=== PATIENT | female | born 1955 | race Caucasian/White ===

== ENCOUNTER 2020-03-06 07:45 | Day surgery (SDC) | payer OTHER ==
--- NOTE | 2020-02-24 14:00 | NUR ---
TALK WITH PATIENT TODAY AND SHE WILL HAVE A RAMP TO GET INTO HER HOME WITH. PATIENTS WILL BRING HER AND TAKE HER TO ALL OF HER APPOINTMENTS (DOCTORS AND PHYSICAL THERAPY). SHE WILL NEED TO OBTAIN A FFW. PATIENT IS GOING TO TALK WITH PHYSICAL THERAPY TODAY ABOUT THIS. PT HAS A WALK IN SHOWER AT HER SISTERS HOME THAT SHE WILL USE THAT ALSO HAS A SHOWER CHAIR. AND PATIENTS HOME [place]ARLA IS TALL THEREFORE NO RISER IS NEEDED. PT IS VERY HAPPY TO HAVE THIS DONE AND DETERMINED.
[~2020-03-06] VITALS: Ht 162.6 cm; Wt 72.7 kg
[~2020-03-06 07:45] MED LIST: BUPROPION XL300 MG PO; CRESTOR10 MG PO; CYCLOBENZAPRINE10 MG PO; KONDREMUL2.5 ML/5 M PO; LAMICTAL200 MG PO; LANSOPRAZOLE30 MG PO; LEXAPRO20 MG PO; MOTRIN IB200 MG; OMEPRAZOLE20 MG PO; POTASSIUM CHLO20 ME2 PO; PRENATAL VITAM1 EACH PO; SENNA LAXATIVE8.6 MG PO; TYLENOL325 MG; ULTRAM50 MG PO; VENTOLIN HFA18 GM; VERAPAMIL ER240 M1 PO; WELLBUTRIN XL150 MG PO; XANAX0.5 MG PO
--- NOTE | 2020-03-06 08:52 | NUR ---
SARAH HOSE ON RIGHT LEG, FOOTPUMPS IN PLACE. NOSE SWABBED WITH NOSIN, BLUE CAP AND MASK IN PLACE.
--- NOTE | 2020-03-06 09:18 | NUR ---
THIS RN ASSIST SHARMILA PIKE WITH POPLITEAL NERVE BLOCK IN DS RM 3. OR STUDENT AT BEDSIDE OBSERVING. CONT PULSE OXIMETER IN PLACE FOR PROCEDURE AND AFTER WITH BOTH SIDERAILS UP FOR SAFETY.
--- NOTE | 2020-03-06 12:12 | NUR ---
03/06/20 1212 Nya Pascual 1115 PT ARRIVED IN PACU NON RESPONSIVE TO NOXIOUS STIMULI. CHIN LIFT HELD BY RN. 1120 PT REACTIVE TO VERBAL/TACTILE STIMULI WITH CONSTANT STIMULATION NEEDED. 1145 PT REACTIVE TO VERBAL STIMULI. SITS UP IN BED, THEN FALLS BACK TO SLEEP. NEEDING VERBAL STIMULATION TO TAKE DEEP BREATHS. 1200 PT OCCASIONALLY STARTLES SELF FROM SNORING, THEN FALLS BACK TO SLEEP.
--- NOTE | 2020-03-06 13:03 | NUR ---
PT ARRIVES TO DS RM 3 FROM PACU DROWSY. PT STATES, "I JUST WANT TO TAKE A NAP" BUT AROUSES TO VERBAL STIMULI. PT DENIES PAIN IN LEFT KNEE AND TOLERATES SMALL SIPS OF WATER WITH NO NAUSEA. PT HAS SHRUTHI IN PLACE, FLASHING GREEN LIGHT. ON-Q PUMP SET TO 4. GOOD CMS, DENIES ANY NUMBESS OR TINGLING IN LEFT LEG. PT PROVIDED CRACKERS AND TOLERATES WELL. CONT PULSE OXIMETER LEFT IN PLACE. CALL LIGHT WITHIN REACH.
--- NOTE | 2020-03-06 14:07 | NUR ---
PT AROUSES WITH VERBAL STIMULATION AND NC REMOVED. PT AWAKES AND IS ABLE TO MAINTAIN SATS ABOVE 94% ON RA. ATTENDS PLACED ON PT DUE TO SPINAL AND PT STATING "PEEING PANTS BEFORE WITH SPINAL." FOOTPUMPS IN PLACE AND PUMPING. SHRUTHI CONT TO FLASH GREEN. PT PROVIDED PUDDING AND DEMONSTRATES I.S. USE FOR THIS RN. PT SPOUSE AT BEDSIDE, CALL LIGHT WITHIN REACH.
[2020-03-06] MEDS ORDERED: ASPIRIN EC325 MG PO (14:46)
[2020-03-06] MEDS ORDERED: XARELTO10 MG PO (14:46)
[2020-03-06] MEDS ORDERED: STOOL SOFTENER1 EAC4 PO (14:47)
[2020-03-06] MEDS ORDERED: HYDROMORPHONE HC4 MG PO (14:47)
[2020-03-06] MEDS ORDERED: GABAPENTIN600 MG PO (14:47)
--- NOTE | 2020-03-06 14:59 | NUR ---
PT SLEEPING ON ARRIVAL TO ROOM, AROUSES WITH VERBAL STIMULATION BUT EASILY DOZES BACK OFF WITH NO STIMULATION. PT DENIES NAUSEA AND RATES PAIN FOR RN. CONT PULSE OXIMETER IN PLACE WHILE SLEEPING, SUPPLEMENTAL 02 PLACED AT 2L/MIN. PT SPOUSE OUT OF ROOM AT THIS TIME, CALL LIGHT WITHIN REACH.
--- NOTE | 2020-03-06 15:17 | NUR ---
ALBERT WITH PHYSICAL THERAPY WORKING WITH PT IN DS RN 3.
--- NOTE | 2020-03-06 15:51 | NUR ---
1538: PT STATES THAT EARLENE AT DR. ETIENNE TOLD HER THAT SHE "WOULD TAKE CARE OF IT" REGARDING FWW. THIS RN LEFT MESSAGE WITH ABE TO RELAY TO EARLENE, STATES "EARLENE WILL CALL BACK IN 5 MINUTES." 1550: PT SPOUSE HEADS TO [facility] TO GET FWW BEFORE THEY CLOSE AT 1600. ALBERT STATES PT IS NOT ALLOWED TO DC HOME WITHOUT FWW.
--- NOTE | 2020-03-06 17:50 | NUR ---
PT ARRIVED TO FLOOR VIA STRETCHER. TRANSFERED SELF TO BED. PT IS ALERT AND ORIENTED. DRESSING TO LEFT KNEE WITH SMALL AMOUNT OF SHADOWING. ON-Q SET TO 4. PICCO DRESSING BLINKING GREEN. TEDHOSE, FEET PUMPS AND CRYOCUFF IN PLACE. SOME AREAS OF NUMBNESS BUT FEELING MOSTLY INTACT TO LLE. DINNER ORDERED. VITALS TAKEN AND STABLE. DENEIS PAIN.
--- NOTE | 2020-03-06 18:18 | NUR ---
[id number]: ALBERT WITH PHYSICAL THERAPY APPROVES PT TO GO HOME, DOES WELL WITH EXERCISES. PT DENIES URGE TO VOID, ENCOURAGED TO TRY. PT AMBULATES TO BATHROOM WITH FWW AND RN ASSIST. PT UNABLE TO INITIATE URINE STREAM AND IS ONLY ABLE TO DRIBBLE SMALL AMOUNT. PT INCONTINENT OF URINE, SOILS ATTENDS X3. PT BLADDER SCANNED OF APPROX 756 MLS. STRAIGHT CATH STERILY INSERTED WITH APPROX 750 MLS ORANGE URINE OUTPUT. PT STATES FEELING MUCH BETTER AFTER CATHETER AND NEW VOIDING TRIAL BEGINS. PT IS TRANSFERRED TO MED SURG RM 108 TO MEET CRITERIA. SPOUSE NOTIFIED OF PT TRANSFER. DR. ETIENNE NOTIFIED OF PT STATUS. VERBAL REPORT GIVEN TO ROBERTO CARLOS SHANNON.
--- NOTE | 2020-03-06 19:05 | NUR ---
REPORT RECEIVED FROM ROBERTO CARLOS SHANNON. PATIENT ALERT AND ORIENTED, STATES NO PAIN. SHRUTHI LIGHT FLASHING GREEN, CRYO IN PLACE, DRESSING C/D/I. CMS INTACT. AT BEDSIDE, CALL LIGHT IN REACH. WILL CONT TO MONITOR.
--- NOTE | 2020-03-06 20:30 | NUR ---
SCHEDULED MEDICATIONS ADMINSTERED. ASSESSMENT COMPLETE. DRESSING INSPECTED BY ROBERTO CARLOS MILLER.
--- NOTE | 2020-03-06 21:25 | NUR ---
IN pt ROOM TO ASSESS DRAINGE ON SHRUTHI. SMALL AMT SS DRAINAGE FROM ON Q SITE. PRIMARY RN TO UPDATE MD. SBA WITH CANE TO RESTROOM. GAIT STABLE. pt VERBALIZES UNDERSTANDING TO USE CALL LIGHT WHEN FINISHED.
--- NOTE | 2020-03-06 21:28 | NUR ---
UPDATE CALL IN TO DR. ETIENNE. PT HAD BEEN UP TO VOID X2. THE FIRST TIME PT WAS TO THE TOILET, PT DID NOT USE CALL LIGHT AND ASSISTED PT TO THE TOILET. PT'S TOOK ENTIRE CRYO UNIT AND SCD UNIT WELL ONQUE/SHRUTHI JIMENEZ BAG TO BATHROOM WITH THE PT. WHEN PT RETURNED TO BED, SEROSANGUINOUS FLUID NOTED TO BE AROUND ONQUE TUBING AND SHRUTHI UNIT WAS FLASHING ORANGE. PT REPORTED THAT SHE DOES NOT FEEL SHE IS READY TO GO HOME YET. DR. ETIENNE APPROVED PT TO STAY OVERNIGHT. DR ETIENNE GAVE VERBAL ORDER TO REINFORCE WOUND DRESSING. WILL CONTINUE TO MONITOR.
--- NOTE | 2020-03-06 21:40 | NUR ---
ANSWERED CALL LIGHT. 1 PA TO THE BATHROOM USING CANE. PATIENT WANTED TO HABE BATHROOM LIGHTS OFF WHILE ON THE TOILET. CHECKED PATIENT MULTIPLE TIMES. PATIENT SEEN USING HER CANE TRYING TO TURN THE FAUCET ON IN THE SINK. PATIENT INSTRUCTED TO TELL THIS ASPHALT MIXING MACHINE OPERATOR TO DO WHATEVER SHE NEEDS. PATIENT UNDERSTOOD AND AGREED. PATIENT WAS BACK TO BED. SCD AND CRYO ARE BACK ON. CALL LIGHT WITHIN REACH. BED ALARM ON FOR SAFETY.
--- NOTE | 2020-03-06 22:05 | NUR ---
PATIENT CALLED TO USE THE BATHROOM. PATIENT IS ALREADY UP IN BED WHEN THIS SOCCER COACH CAME TO THE ROOM. PATIENT STATED SHE WILL BE IN THE TOILET FOR A WHILE. INSTRUCTED TO NOT TO GET UP BY HERSELF. INSTRUCTED TO PULL THE STRING/BATHROOM LIGHT WHEN DONE AND READY TO GO BACK TO BED. PRIMARY RN ANGELA NOTIFIED.
--- NOTE | 2020-03-06 23:00 | NUR ---
ANSWERED CALL LIGHT. PATIENT STATES NEEDING TO VOID AGAIN, REPORTS "SPASM/TINGLING" IN URETHRA, AND "PRESSURE". BLADDER SCANNED TWICE, BOTH READINGS REPORT >[id number]. PT UP TO [facility] TO VOID WITH NO SUCCESS. PER ORDER, NELSON CATHETER INSERTED USING STERILE TECHNIQUE. IMMEDIATELY POST NELSON PLACEMENT, 800 MLS URINE OBTAINED IN NELSON BAG. PT REPORTS "MUCH RELIEF". DRESSING ENFORCED TO ON QUE TUBING WITH OPSITE, SHRUTHI NOW FLASHING GREEN. CRYO REPLACED. PT REPORTS NO PAIN. IN BED WITH KNEE STRAIGHT, BED LOCKED, BED ALARM ON. CALL LIGHT IN REACH.
--- NOTE | 2020-03-07 01:26 | NUR ---
IN ROOM TO HANG IV ANTIBIOTIC. PT SLEEPING SUPINE WITH KNEE STRAIGHT. SHRUTHI FLASHING GREEN, SCDS ON, CRYO UNIT IN PLACE. PT SLEPT THROUGH IV INFUSION. CALL LIGHT WITHIN REACH.
--- NOTE | 2020-03-07 02:56 | NUR ---
SCHEDULED MEDICATIONS ADMINISTERED. VITALS AND I/O'S COMPLETE. ASSESSMENT COMPLETE. DRESSING TO L KNEE REMAINS UNCHANGED, C/D/I, SHRUTHI FLASHING GREEN, CRYO IN PLACE. CMS INTACT. PT REPORTS NO PAIN. CALL LIGHT IN REACH, WILL CONTINUE TO MONITOR.
--- NOTE | 2020-03-07 04:41 | NUR ---
ROUNDED ON PATIENT. IN BED WITH EYES CLOSED. BREATHING EVEN AND UNLABORED. CALL LIGHT IN REACH.
--- NOTE | 2020-03-07 06:18 | NUR ---
VITALS COMPLETE. NELSON REMOVED WNL. DRESSING TO L KNEE UNCHANGED, C/D/I, SHRUTHI FLASHING GREEN, CRYOCUFF IN PLACE. PT REPORTS "ABLE TO FEEL THE KNEE MORE THIS MORNING" BUT STATES NO OVERT PAIN. CALL LIGHT IN REACH, NO OTHER NEEDS.
--- NOTE | 2020-03-07 07:14 | NUR ---
In room for shift report from Rekha AZEVEDO. Pt lying in bed, alert and pleasant upon greeting. Pt reports no pain or nausea at this time. In bed, table and call light within reach, side rails up x4, bed alarm on. Report in cluded: Pt had an episode of confusion last night where she got up and walked into bathroom without calling or properly moving her tubes and lines with her. Bed alarm turned on after this. Since this episode the pt has had an uneventful evening.
--- NOTE | 2020-03-07 08:00 | NUR ---
THIS RN TO ROOM TO ASSIST PT UP TO CHAIR FOR BREAKFAST. STAND BY ASSIST WITH CANE UP TO CHAIR. PT IS GETTING UP PT REPORTS "I TOOK ALL MY HOME MEDICATIONS FROM MY BAG." MEDICATION BOTTLES REMOVED FROM PTS BAG. PT REPORTS SHE TOOK "ONE OF EACH LIKE I NORMALLY DO" INCLUDING MEDICAITONS NORMALLY TAKEN AT NIGHT (PT STATES "I CHANGED IT" WHEN ASKED ABOUT WHY SHE TAKES HER NIGHT TIME MEDICATIONS IN THE MORNING). PT TOOK THE FOLLOWING MEDICATIONS: 1 BUPROPION, 30MG TABLET; 1 LAMOTRIGINE 200MG TABLET; 1 LANSOPRAZOLE 30MG TABLET; 1 ROSUVASTATIN 10MG TABLET; 1 ESCITALOPRAM 20MG TABELT, AND [address] ETIENNE UPDATED. DR ETIENNE STATES NO NEW ORDERS BUT TO HOLD THE MORNING PANTOPRAZOLE. DR. ETIENNE STATES OK TO GIVE PT ALL THE REST OF HER MORNING MEDICATIONS ORDERED IN EMAR. EDUCATION DONE WITH PT. PT VERBALIZES UNDERSTANDING. PTS HOME MEDICATIONS BOTTLES AT NURSES STATION PENDING DISCHRAGE. PTS VIVIAN AZEVEDO, UPDATED AND VERBALIZES UNDERSTANDING OF MD ORDER. PT UP TO CHAIR, NO ADDITIONAL REQUSTS OR COMPLAINTS. CALL LIGHT WITHIN REACH. MORNING CARES DONE. PTS VIVIAN AZEVEDO, AT BEDSIDE.
--- NOTE | 2020-03-07 08:00 | NUR ---
In room for assessment and med pass. Pt up to chair withgiuliano Sheffield RN at bedside. Rn reported that Pt would not be able to take one of her meds due to having already taken her home meds without hospital consent this morning. Pt med held, all other meds given as ordered without difficulty. Pt assessment complete, VSS, Left knee dressing with small amount of red drainage from last night, SHRUTHI dressing in place, green light flashing, and pump set to 4. Pt reclining in chair, having breakfast, fresh water given, linens changed, table and call light within reach, at bedside.
--- NOTE | 2020-03-07 08:06 | OR ---
[facility] [address] [place], [place] [address] Signed DATE OF OPERATION: 03/06/2020 SURGEON: Juan Murry MD PREOPERATIVE DIAGNOSIS: Degenerative joint disease, left knee. POSTOPERATIVE DIAGNOSIS: Degenerative joint disease, left knee. PROCEDURE PERFORMED: Left total knee arthroplasty with Simón. ASSISTANTS: 1. Vero Clark PA-C. Vero was present and critical for all portions of procedure. 2. STEVE Seals. ANESTHESIA: Spinal. BLOOD LOSS: 225 mL. IMPLANTS: [place] Triathlon size #3 with a 10 mm insert and 35 mm patella. BRIEF HISTORY: Sravanthi is a 64-year-old female with progressive worsening of osteoarthritis pain. She had nonoperative treatment without success. Risks, benefits, and alternatives of operative intervention were discussed with her and she elected to proceed. DESCRIPTION OF PROCEDURE: Once consent was obtained, she was taken to the operating room after adequate anesthesia. She was placed on operating room table. All downside pressure points were well padded. The left leg was prepped and draped in a standard sterile fashion. It was noted that she was fairly hypertensive prior to surgery, but this corrected during the surgery. Once the leg was prepped and draped in a standard sterile fashion, the knee was approached through a standard anterior longitudinal incision, carried through skin and subcutaneous tissue. A subvastus approach was taken through the capsule. The MCL Electronically Signed By: JUAN MURRY MD 03/07/20 0806 PATIENT NAME: SRAVANTHI ELKINS OPERATIVE REPORT DATE OF : 55 REPORT #: [id number] PHYSICIAN: JUAN MURRY MD PCP: OCTAVIO ESPINOZA REPORT IS CONFIDENTIAL AND NOT TO BE RELEASED WITHOUT AUTHORIZATION [facility] [address], [place] [address] Signed was elevated with a sleeve around the posteromedial corner. All bleeders were cauterized with the Aquamantys as we went. The infrapatellar fat pad was excised and the anterior horns of menisci were transected. The ACL was pretty much gone. The PCL was intact. The knee was then flexed and the checkpoints for the Simón were placed. The Simón computer rays were then placed. The femoral wound was placed intra-articular. The tibia was placed one handbreadth below the tubercle through percutaneous stab incisions. The leg was then registered with the computer and fine anatomic points were taken. Once this was completed, osteophytes were removed. First valgus alignment and ligament tension were then taken and the prosthesis alignment was adjusted on the computer to have equal gaps at 19. The robot was then brought in and the straight cuts were made starting with the tibia. Care was taken with soft tissue protection throughout this. The robot was then switched to the angle drill and the 2 ankle cuts were made and all bony remnants were removed. Once this was completed, the trials were positioned and the knee was taken through range of motion with a 9 mm polyethylene. I felt like the knee was a little bit loose, however, with the 10 mm was quite well balanced. We then cut-sized and drilled the patella for a 32 mm patella. Due to the relative softness of the bone, we elected to go with a hybrid prosthesis. The knee was then flexed and the distal femoral drill holes were made. Tibia was finished using the keel punch. The bone was pulse lavaged and packed with dry Ray-Vick. The cement was mixed when reached proper consistency. It was placed on the tibial and patellar implants and the patella and tibial bone. The tibia was impacted in position first. All excess cement was removed. The polyethylene was snapped into position. The femur was then impacted onto the femur, which was quite tight and well fitting. The knee was extended and nicely loaded. The patella was clamped into position, all overflow was removed. The cement was allowed to harden. Once hardened sufficiently, any remaining overflow was removed using osteotomes. The knee was pulse lavaged 1st with 1 L of dilute iodine solution followed by 2 L of antibiotic solution. The periarticular soft tissues were injected with 80 mL of ropivacaine Toradol mixture. The On-Q pain pump was then placed in the adductor canal from a percutaneous position superior laterally. The arthrotomy was then closed using #1 Vicryl followed by #2 Stratafix, the subcutaneous tissue with #0 Stratafix, and the skin with a zip line dressing in full flexion. The wound was dressed with a SHRUTHI wound VAC dressing and Sridhar wrap. She tolerated the procedure well. All sponge, needle, and instrument counts were correct. Juan Murry MD BA/MODL /[id number] Electronically Signed By: JUAN MURRY MD 03/07/20 0806 PATIENT NAME: SRAVANTHI ELKINS OPERATIVE REPORT DATE OF : 55 REPORT #: [id number] PHYSICIAN: JUAN MURRY MD PCP: OCTAVIO ESPINOZA REPORT IS CONFIDENTIAL AND NOT TO BE RELEASED WITHOUT AUTHORIZATION [facility] [address] [place], [place] [address] Signed Copies: ~ Electronically Signed By: JUAN MURRY MD 03/07/20 0806 PATIENT NAME: SRAVANTHI ELKINS OPERATIVE REPORT DATE OF : 55 REPORT #: [id number] PHYSICIAN: JUAN MURRY MD PCP: OCTAVIO ESPINOZA REPORT IS CONFIDENTIAL AND NOT TO BE RELEASED WITHOUT AUTHORIZATION
--- NOTE | 2020-03-07 09:05 | NUR ---
PATIENT SITTING UP IN BED. AND PHYSICAL THERAPIST IN ROOM. VITAL SIGNS AND I&O DONE. CALL LIGHT WITHIN REACH. NO OTHER NEEDS AT THIS TIME
--- NOTE | 2020-03-07 09:40 | NUR ---
PUMP ALARMING, IV ABX INFUSION AND FLUSH COMPELTE. IV FLUSHED AND SALINE LOCKED PER PROTOCOL. ALCOHOL CAPS APPLIED. PT SITTING ON EDGE OF BED. CALL LIGHT WITHIN REACH. PT REPORTS SHE HAS VOIDED TWICE AND IS READY TO GO HOME. PT REPORTS 0/10 PAIN IN HER KNEE AND DENIES NAUSEA. NO ADDIITONAL REQUESTS OR COMPLAINTS. CALL LIGHT WIHTIN REACH.
--- NOTE | 2020-03-07 10:20 | NUR ---
In room for pt DC. VSS. Pts IV DCd WNL, catheter intact, slight excess bleeding stopped within 1 min of pressure. Pressure dressing applied. Pt dressed in own clothes. Pts taking her home. Pt and verbalized understanding of DC instructions, medications, and follow up care plans.
--- NOTE | 2020-03-07 10:46 | NUR ---
Pt DC and taken out by nursing staff and her , pt in wheelchair, all belongings with them.
--- NOTE | 2020-03-07 10:48 | NUR ---
PT READY FOR DISCHARGE. PHARMACIST REY TALKING WITH PT ABOUT MEDICATIONS. PT VERBALIZES UNDERSTANDING OF DISCRHAGE INSTRUCTIONS, MEDICATIONS, FOLLOW UP APPOINTMENTS AND PHSICAL THERAPY INSTRUCTIONS. ADDITONAL FOLLOW UP FOR SHRUTHI DRESSING CHANGE REVIEWED WITH PT AND PT REMINDED TO BRING SHRUTHI DRESSING TO HER DRESSING CHANGE APPOINTMENT. PT VERBALIZES UNDERSTANDING OF INSTRUCTIONS. PT WHEELED FROM UNIT TO MEET AT THE FRONT OF THE HOSPITAL.
--- NOTE | 2020-03-07 11:15 | NUR ---
Spoke trinidad Fishman. She plans on dc today. Has completed PT and was able to do stairs without problem. She plans on dc to home today with her spouse. He is present and states will assist as needed. Pt will start therapy with [facility] in [place] on Friday.
--- NOTE | 2020-03-07 13:41 | NUR ---
CONNECTED WITH PT SHE WAS BEING WHEELED OUT FOLLOWING DC. PT PRAISED ALL STAFF SHE WENT BY RN'S STATION SAYING THAT WE ARE "HEROES" IN HER EYES. PT EXTENDED GOD'S BLESSING TO ALL STAFF PRESENT WITH A CHEER!.
--- NOTE | 2020-03-07 14:11 | NUR ---
Progress notes, surgery report, face sheet, PT eval and notes faxed to [facility] phone [phone], .
== END 2020-03-07 10:48 | disposition home or self-care (01) ==
LOC: DS 07:45 → MS 18:00 → DS 03-07 10:48
PROVIDERS: ATTEND Specialist
PROC: 8E0Y0CZ Robotic Assisted Procedure of Lower Extremity, Open Approach (ICD-10-PCS; 2020-03-06)
PROC: 3E0T3BZ Introduction of Anesthetic Agent into Peripheral Nerves and Plexi, Percutaneous Approach (ICD-10-PCS; 2020-03-06)
PROC: 3E0T3BZ Introduction of Anesthetic Agent into Peripheral Nerves and Plexi, Percutaneous Approach (ICD-10-PCS; 2020-03-06)
PROC: 0SRD0J9 Replacement of Left Knee Joint with Synthetic Substitute, Cemented, Open Approach (ICD-10-PCS; principal; 2020-03-06 09:30)
DX: M17.12 Unilateral primary osteoarthritis, left knee (principal); M71.22 Synovial cyst of popliteal space [Baker], left knee; M21.162 Varus deformity, not elsewhere classified, left knee; M24.562 Contracture, left knee; G89.18 Other acute postprocedural pain; M25.461 Effusion, right knee; I10 Essential (primary) hypertension; K21.9 Gastro-esophageal reflux disease without esophagitis; F31.9 Bipolar disorder, unspecified; Z79.899 Other long term (current) drug therapy; Z88.1 Allergy status to other antibiotic agents; Z88.8 Allergy status to other drugs, medicaments and biological substances; Z20.828 Contact with and (suspected) exposure to other viral communicable diseases; Z96.662 Presence of left artificial ankle joint; Z96.661 Presence of right artificial ankle joint
CPT/HCPCS: 01402; 64447; 64450; 76942; 97110; 97116; 97161; C1713; C1776; J0690; J0735; J1100; J1200; J1885; J2001; J2250; J2405; J2704; J2765; J2795; J3010; J7121; J8540

== ENCOUNTER 2020-03-07 21:43 | Emergency (ER) | payer OTHER ==
[~2020-03-07] VITALS: Ht 162.6 cm; Wt 72.6 kg
[~2020-03-07 21:43] MED LIST changes: +ASPIRIN EC325 MG PO; +GABAPENTIN600 MG PO; +HYDROMORPHONE HC4 MG PO; +STOOL SOFTENER1 EAC4 PO; +XARELTO10 MG PO
== END 2020-03-07 23:20 | disposition home or self-care (01) ==
LOC: ED 21:43
DX: T84.84XA Pain due to internal orthopedic prosthetic devices, implants and grafts, initial encounter (principal); R33.9 Retention of urine, unspecified; I10 Essential (primary) hypertension; F32.9 Major depressive disorder, single episode, unspecified; F41.9 Anxiety disorder, unspecified; E78.5 Hyperlipidemia, unspecified; Z88.8 Allergy status to other drugs, medicaments and biological substances; Z88.1 Allergy status to other antibiotic agents; Z79.899 Other long term (current) drug therapy; Z79.82 Long term (current) use of aspirin; Z79.891 Long term (current) use of opiate analgesic
CPT/HCPCS: 51701; 51798; 99283-25

== ENCOUNTER 2020-05-01 09:00 | Day surgery (SDC) | payer MEDICARE ==
--- NOTE | 2020-04-25 16:38 | NUR ---
DOS:05-01-20 HAS A SHOWER THAT IS WALKIN AT SISTER HOME PT WILL USE A CANE PT HAS RAMP INTO HER HOME HAS COMMODE AND HOSPITAL BED IN THE LIVINGROOM OR SISTER WILL DRIVE HER TO HER APPOINTMENTS
[~2020-05-01] VITALS: Ht 162.6 cm; Wt 73.6 kg
[2020-05-01] MEDS ORDERED: ASPIRIN EC325 MG PO (13:59)
[2020-05-01] MEDS ORDERED: XARELTO10 MG PO (13:59)
[2020-05-01] MEDS ORDERED: GABAPENTIN300 MG PO (14:00)
[2020-05-01] MEDS ORDERED: STOOL SOFTENER1 EAC4 PO (14:00)
[2020-05-01] MEDS ORDERED: DILAUDID2 MG PO (14:01)
[2020-05-01] MEDS ORDERED: KETOROLAC TROME10 MG PO (14:01)
--- NOTE | 2020-05-01 14:35 | NUR ---
05/01/20 1435 Nya Pascual 1403 PT ARRIVED IN PACU SLEEPY WITH NO C/O'S. ON QUE SET AT 4ML/HR FROM SURGERY. ICE PACK TO R KNEE (PT HAS CRYO CUFF AT HOME).
--- NOTE | 2020-05-01 15:28 | NUR ---
1505 PT BACK TO ROOM FROM PACU ALERT AND AWAKE, DENIES PAIN OR NAUSEA, AT BEDSIDE, PT TAKING DRINKS OF WATER AND EATING PUDDING TOLERATES WELL.
--- NOTE | 2020-05-01 16:08 | NUR ---
PATIENT AMBULATED TO BATHROOM WITH WALKER, PATIENT TIP-TOEING AND REPORTS BACK OF LEG HURTING. PATIENT VOIDED 600 ML OF URINE. RATES PAIN 5/10 ON PAINS SCALE. ADMINSITERED PAIN MEDICATION PER JUN.
--- NOTE | 2020-05-01 16:28 | OR ---
[facility] [address] [place], [place] [address] Signed DATE OF OPERATION: 05/01/2020 SURGEON: Juan Murry MD PREOPERATIVE DIAGNOSIS: Degenerative joint disease, right knee. POSTOPERATIVE DIAGNOSIS: Degenerative joint disease, right knee. PROCEDURE PERFORMED: Right total knee arthroplasty with Simón. SILVER HOLLOWARE ASSEMBLER: Vero Clark PA-C. Vero was present and critical for all portions of procedure. ANESTHESIA: Spinal. ESTIMATED BLOOD LOSS: 200 mL. IMPLANTS: [place] Triathlon size #4 femur, 3 tibia, 10 mm polyethylene and 33 mm patella. BRIEF HISTORY: Sravanthi is a 64-year-old female with severe knee DJD. She had undergone successful left TKR and wished to proceed with the right. DESCRIPTION OF PROCEDURE: Once consent was obtained, she was taken to the operating room and placed on the operating table. All downside pressure points well padded. Hip bump was placed. The leg was prepped and draped in a standard sterile fashion. No tourniquet was placed. The knee was approached through standard anterior incision and subvastus approach was taken. The medial capsule was split proximally and the patella mobilized laterally. The infrapatellar fat pad was excised. The MCL was elevated with a sleeve around the posteromedial corner. The ACL was transected as was the anterior horns of menisci. The knee was flexed and the checkpoints were placed in the medial femoral condyle and proximal tibia. The two pins for the Simón computer ray were placed in the medial Electronically Signed By: JUAN MURRY MD 05/01/20 1628 PATIENT NAME: SRAVANTHI ELKINS OPERATIVE REPORT DATE OF : 55 REPORT #: [id number] PHYSICIAN: JUAN MURRY MD PCP: OCTAVIO ESPINOZA REPORT IS CONFIDENTIAL AND NOT TO BE RELEASED WITHOUT AUTHORIZATION [facility] [address] [place], [place] [address] Signed femoral condyle, two were placed in the proximal tibia, one handsbreadth below the tuberosity. The leg was then registered with computer. The fine anatomic points were then registered and ligament balance was found to be in neutral. We elected to go ahead and proceed per plan. The robot was brought in. The straight cuts were made first with care taken to protect the soft tissue circumferentially. The saw was then switched to the angle saw and the last two cuts were made. All bone pieces were removed as were any remaining osteophytes. The trials were then positioned. The knee was quite stable, although the 9 planned for a little bit loose, so we switched to a 10, which was good. The patella was cut sized and drilled for a 33 symmetric patella. The femoral drill holes were made and the proximal tibia was finished using the keel punch. Her bone was quite soft, so we elected to go ahead with a hybrid prosthesis. The trials were removed. The bone surfaces were pulse lavaged, packed with dry Ray-Vick. Cement was mixed and reached proper consistency, placed on tibia and the patella components. The cement was then placed on the tibia. The tibia was impacted in position, followed by removal of all overflow cement. The polyethylene was snapped into position. The femur was impacted. The knee was then extended and nicely loaded. The patella was cemented into position using the cement and a clamp. The cement was allowed to harden. Once hardened sufficiently, the knee was taken through range of motion. All bleeders were cauterized as we went. We noted a small bleeder posterolaterally and placed some Jerrell on it, which stopped it. The On-Q pump was then placed percutaneously into the adductor canal from the suprapatellar pouch. The arthrotomy was then closed using #2 StrataFix, #1 StrataFix to the subcutaneous tissue, and ZipLine for the skin. Wound was dressed with an Acticoat dressing, ABD, and Sridhar wrap. She tolerated the procedure well. All sponge, needle, and instrument counts were correct. Juan Murry MD BA/MODL /[id number] Copies: ~ Electronically Signed By: JUAN MURRY MD 05/01/20 1628 PATIENT NAME: SRAVANTHI ELKINS OPERATIVE REPORT DATE OF : 55 REPORT #: [id number] PHYSICIAN: JUAN MURRY MD PCP: OCTAVIO ESPINOZA REPORT IS CONFIDENTIAL AND NOT TO BE RELEASED WITHOUT AUTHORIZATION
--- NOTE | 2020-05-01 17:50 | NUR ---
PT CALLED AT HOME REGARDING PERSONAL CANE LEFT IN PT ROOM AFTER DC. PT SPOUSE WILL BE BY DS DEPT TOMORROW TO GET CANE.
== END 2020-05-01 16:45 | disposition home or self-care (01) ==
LOC: DS 09:00
PROVIDERS: ATTEND Specialist
PROC: 0SRC0J9 Replacement of Right Knee Joint with Synthetic Substitute, Cemented, Open Approach (ICD-10-PCS; principal; 2020-05-01 11:00)
DX: M17.11 Unilateral primary osteoarthritis, right knee (principal); E78.00 Pure hypercholesterolemia, unspecified; I10 Essential (primary) hypertension; F41.9 Anxiety disorder, unspecified; K21.9 Gastro-esophageal reflux disease without esophagitis; F32.9 Major depressive disorder, single episode, unspecified; G89.18 Other acute postprocedural pain; Z96.652 Presence of left artificial knee joint; Z88.1 Allergy status to other antibiotic agents
CPT/HCPCS: 01402; 36415; 64447; 64450; 76942; 80053; 97110; 97161; C1713; C1776; J0690; J1100; J1885; J2001; J2250; J2405; J2704; J2795; J3010; J7121

== ENCOUNTER 2021-04-04 07:25 | Day surgery (SDC) | payer MEDICARE ==
[~2021-04-04] VITALS: Ht 162.6 cm; Wt 69.5 kg
--- NOTE | ~2021-04-04 | OR ---
[facility] [address], [place] [address] Draft DATE OF OPERATION: 04/04/2021 SURGEON: Juan Murry MD PREOPERATIVE DIAGNOSIS: Right carpal tunnel syndrome. POSTOPERATIVE DIAGNOSIS: Right carpal tunnel syndrome. PROCEDURE PERFORMED: Right carpal tunnel release. PROFESSOR OF BUSINESS: None. ANESTHESIA: Trae block. TOURNIQUET TIME: 12 minutes. BRIEF HISTORY: Sravanthi is a 65-year-old female with numbness and tingling in her hand as well as nerve conduction studies consistent with carpal tunnel. Risks and benefits of operative treatment were discussed with her and she elected to proceed. DESCRIPTION OF PROCEDURE: Once consent was obtained, she was taken to the operating room. She was left on the day surgery bed and hand table was brought in. The arm was prepped and draped in a standard sterile fashion after establishment of the Trae block. The carpal tunnel was approached through a 1.5 cm incision in the distal wrist crease, this was carried through skin and subcutaneous tissue. Palmaris longus was identified, retracted and protected. The underlying transverse carpal ligament was dissected free of overlying soft tissue under loupe magnification. It was then released proximally a cm and distally to the distal extent again under direct visualization. The wound was copiously irrigated with normal saline, closed with 3-0 nylon, injected with 7 mL 0.25% plain Marcaine. The wound was dressed with bacitracin gauze. She tolerated the procedure well. All sponge, needle, and instrument counts were correct. PATIENT NAME: SRAVANTHI ELKINS OPERATIVE REPORT DATE OF : 55 REPORT #: [id number] PHYSICIAN: JUAN MURRY MD PCP: OCTAVIO ESPINOZA REPORT IS CONFIDENTIAL AND NOT TO BE RELEASED WITHOUT AUTHORIZATION [address] [address] Draft Juan Murry MD BA/JOHN /[id number] Copies: ~ PATIENT NAME: SRAVANTHI ELKINS OPERATIVE REPORT DATE OF : 55 REPORT #: [id number] PHYSICIAN: JUAN MURRY MD PCP: OCTAVIO ESPINOZA REPORT IS CONFIDENTIAL AND NOT TO BE RELEASED WITHOUT AUTHORIZATION
[~2021-04-04 07:25] MED LIST changes: +DILAUDID2 MG PO; +GABAPENTIN100 MG PO; +GABAPENTIN300 MG PO; +HYDROCODON-ACE1 EA10 PO; +KETOROLAC TROME10 MG PO; +WELLBUTRIN XL300 MG PO
[2021-04-04] MEDS ORDERED: HYDROCODON-ACE1 EA10 PO (09:38)
--- NOTE | 2021-04-04 09:44 | NUR ---
04/04/21 0944 DOMENIC FARAH 0936-PATIENT TO PACU ON 2L VIA NC. PATIENT IS NONAROUSABLE. RESP EVEN AND UNLABORED. 0940-PATIENT REACTIVE TO VERBAL STIMULI. RESP RATE EVEN AND UNLABORED. ICE PACK IN PLACE. DENIES PAIN AND NAUSEA.
== END 2021-04-04 10:25 | disposition home or self-care (01) ==
LOC: DS 07:25
PROVIDERS: ATTEND Specialist
PROC: 01N50ZZ Release Median Nerve, Open Approach (ICD-10-PCS; principal; 2021-04-04 09:15)
DX: G56.01 Carpal tunnel syndrome, right upper limb (principal); K21.9 Gastro-esophageal reflux disease without esophagitis; I10 Essential (primary) hypertension; Z88.1 Allergy status to other antibiotic agents; Z96.653 Presence of artificial knee joint, bilateral
CPT/HCPCS: J0690; J1200; J2001; J2250; J2704; J7121